=== PATIENT | male | born 1985 | race Caucasian/White ===

== ENCOUNTER 2016-05-30 23:50 | Emergency (ER) | payer MEDICAID | END 2016-05-31 01:46 | disposition home or self-care (01) | DX: R44.0 Auditory hallucinations (principal); F15.10 Other stimulant abuse, uncomplicated ==

== ENCOUNTER 2016-07-19 20:02 | Outpatient (CLI) | payer MEDICAID | END 2016-07-19 20:03 | disposition critical access hospital (66) | DX: S11.93XA Puncture wound without foreign body of unspecified part of neck, initial encounter (principal); X99.9XXA Assault by unspecified sharp object, initial encounter | CPT/HCPCS: A0425; A0429 ==

== ENCOUNTER 2016-07-19 20:18 | Inpatient (IN) | payer MEDICAID ==
[~2016-07-19 20:18] MED LIST: LACTATED RINGERS 1,000 ML IV ONE
[2016-07-19] MEDS ORDERED: SODIUM CHLORIDE 0.9% 1,000 ML IV ONE (20:23)
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
[2016-07-19 20:34] LABS: BASOPHILS # (AUTO) 0.1 10^3/uL (0.0-0.1); BASOPHILS % (AUTO) 0.4 %; HCT - HEMATOCRIT 44.4 % (42.0-52.0); HGB - HEMOGLOBIN 14.4 g/dL (14.0-18.0); LYMPHOCYTES # (AUTO) 0.9 10^3/uL (1.5-3.5); LYMPHOCYTES % (AUTO) 5.9 %; MEAN CORPUSCULAR HEMOGLOBIN 29.1 pg (27.0-31.0); MEAN CORPUSCULAR HGB CONC 32.5 g/dL (32.0-36.0); MEAN CORPUSCULAR VOLUME 89.6 fL (80.0-94.0); MEAN PLATELET VOLUME 8.7 fL (7.4-11.4); MONOCYTES # (AUTO) 1.1 10^3/uL (0.0-1.0); MONOCYTES % (AUTO) 7.3 %; NEUTROPHILS # (AUTO) 13.3 10^3/uL (1.5-6.6); NEUTROPHILS % (AUTO) 86.4 %; RED BLOOD COUNT 4.96 10^6/uL (4.70-6.10); RED CELL DISTRIBUTION WIDTH 12.7 % (12.0-15.0); UNCORRECTED WHITE BLOOD COUNT 15.5 x10^3/uL; WHITE BLOOD COUNT 15.5 x10^3/uL (4.8-10.8)
[2016-07-19] MEDS ORDERED: TETANUS/DIPHTHERIA/PERTUSSIS 0.5 ML SYRINGE IM ONE (20:35)
[2016-07-19 20:42] LABS: INR 1.1 (0.8-1.2); PT - PROTHROMBIN TIME 12.3 secs (9.9-12.6)
[2016-07-19 20:46] LABS: ALBUMIN/GLOBULIN RATIO 1.5 (1.0-2.2); BILIRUBIN,TOTAL 0.8 mg/dL (0.2-1.0); BUN - BLOOD UREA NITROGEN 13 mg/dL (6-20); CALCIUM 9.3 mg/dL (8.5-10.3); CARBON DIOXIDE - CO2 26 mmol/L (21-32); CHLORIDE 98 mmol/L (101-111); CREATININE 0.8 mg/dL (0.6-1.2); GFR - MDRD 114 (>89); GLUCOSE 125 mg/dL (70-100); LIPASE 13 U/L (22-51); POTASSIUM 3.8 mmol/L (3.5-5.0); SALICYLATE < 6.0 mg/dL; SODIUM 136 mmol/L (135-145); TOTAL PROTEIN 7.9 g/dL (6.7-8.2)
[2016-07-19 20:49] LABS: PARTIAL THROMBOPLASTIN TIME 26.4 secs (24.9-33.3)
[2016-07-19 20:50] LABS: ACETAMINOPHEN < 10 ug/mL (10-30)
--- NOTE | 2016-07-19 21:09 | XRAY Preliminary Report ---
Exam: XR Chest 1 View IMPRESSION: Small left pneumothorax with about 3 cm of apical pleural separation. RAD[facility] The critical result notification system was initiated by Dr. Tim El at 21:04 hrs on 07/19/16. The above critical findings were discussed with Dr. Conner by Dr. Tim El at 21:07 hrs on 07/19/16. SITE ID: [id number]
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
[2016-07-19] MEDS ORDERED: IOPAMIDOL-300 100 ML VIAL IVP ONE (21:26)
--- NOTE | 2016-07-19 22:23 | CT Preliminary Report ---
Exam: CT Chest Angio (PE) IMPRESSION: 1. Skin wound over the left anterior fourth costochondral junction with soft tissue air in the upper left chest and neck. 2. No sign of active extravasation, spasm, or other evidence of vascular injury. 3. Small left hemopneumothorax, with no sign of the pulmonary injury identified. RADI SITE ID: [id number]
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
--- NOTE | 2016-07-19 22:37 | CT Preliminary Report ---
Exam: CT Neck Angio IMPRESSION: Somewhat limited due to predominantly venous phase acquisition. However, there are no fin dings of significant vascular injury to the left carotid or subclavian arteries. Limited evaluation o f the vertebral arteries. Left apical pneumothorax, described on prior chest radiograph. [facility]IA SITE ID: [id number]
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
[2016-07-19] MEDS ORDERED: LACTATED RINGERS 1,000 ML IV ONE (22:47)
[2016-07-19] MEDS ORDERED: LIDOCAINE 1% 50 ML MDV SUBQ ONE (22:47)
[2016-07-19] MEDS ORDERED: LORazepam 2 MG/ML SYRINGE IVP PRN (23:35)
[2016-07-19] MEDS ORDERED: PROCHLORPERAZINE 10 MG/2 ML VIAL IVP PRN (23:35)
[2016-07-19] MEDS ORDERED: SODIUM CHLORIDE FLUSH 0.9% 10 ML SYRINGE IVP PRN (23:35)
[2016-07-19] MEDS ORDERED: ONDANSETRON 4 MG/2 ML VIAL IVP PRN (23:35)
[2016-07-19] MEDS ORDERED: LIDOCAINE 1%-EPI 1:100000 20 ML MDV SUBQ ONE (23:35)
--- NOTE | 2016-07-19 23:45 | XRAY Preliminary Report ---
Exam: XR Chest for Line Placement IMPRESSION: 1. Endotracheal tube 5.6 cm above the jocelyne. 2. Left chest tube, buckled at the sidehole. 3. Suspect small residual left apical pneumothorax measuring about 1.3 cm. [facility] SITE ID: [id number]
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
[2016-07-19] MEDS ORDERED: NEOSTIGMINE 1 MG/1 ML 10 ML MDV IVP ONE (23:51)
[2016-07-19] MEDS ORDERED: PROPOFOL 200 MG/20 ML VIAL IVP ONE (23:51)
[2016-07-19] MEDS ORDERED: GLYCOPYRROLATE 1 MG/5 ML VIAL IVP ONE (23:51)
[2016-07-19] MEDS ORDERED: DEXAMETHASONE 4 MG/ML VIAL IVP ONE (23:51)
[2016-07-19] MEDS ORDERED: LIDOCAINE-MPF 2% 5 ML VIAL IM ONE (23:51)
[2016-07-19] MEDS ORDERED: PHENYLEPHRINE 50 MG/5 ML VIAL IV ONE (23:51)
[2016-07-19] MEDS ORDERED: ceFAZolin 1 GM VIAL IV ONE (23:51)
[2016-07-19] MEDS ORDERED: SUCCINYLCHOLINE 200 MG/10 ML VIAL IVP ONE (23:51)
[2016-07-19] MEDS ORDERED: ONDANSETRON 4 MG/2 ML VIAL IVP ONE (23:51)
[2016-07-19] MEDS ORDERED: HYDROmorphone 1 MG/ML SYRINGE IVP ONE (23:51)
[2016-07-19] MEDS ORDERED: ROCURONIUM 50 MG/5 ML VIAL IVP ONE (23:51)
[2016-07-19] MEDS ORDERED: MIDAZOLAM 2 MG/2 ML VIAL IVP ONE (23:51)
[2016-07-20] MEDS ORDERED: MEPERIDINE 50 MG/ML SYRINGE ONE (00:04)
[2016-07-20] MEDS: D5NS W/20 MEQ KCL 1,000 ML IV SCH ×3 (00:26→20:24)
[2016-07-20] MEDS: ACETAMINOPHEN 1,000 MG/100 ML 100 ML IV SCH ×4 (00:29→18:19)
--- NOTE | 2016-07-20 00:38 | XRAY Preliminary Report ---
Exam: XR Chest 1 View IMPRESSION: 1. Left chest tube in place with probable small residual 5 mm left apical pneumothorax. [facility] SITE ID: [id number]
--- NOTE | 2016-07-20 00:41 | XRAY Report ---
EXAM: CHEST RADIOGRAPHY EXAM DATE: 07/19/2016 11:48 PM. CLINICAL HISTORY: CHEST TUBE INSERTION, POST SURGERY. COMPARISON: 07/19/2016, 2218 hrs.. TECHNIQUE: 1 view. FINDINGS: Lungs/Pleura: Suspected small residual left apical pneumothorax measuring 5 mm. No alveolar consolida tion or pleural effusion seen. Mediastinum: Within exam limitations, cardiomediastinal contour is normal. Other: Left chest tube in place. Endotracheal tube is no longer seen. IMPRESSION: 1. Left chest tube in place with probable small residual 5 mm left apical pneumothorax. [facility] Referring Provider Line: [phone] SITE ID: [id number]
[2016-07-20] MEDS: ceFAZolin 2 GM/50 ML 50 ML IV SCH ×2 (00:57→06:32)
[2016-07-20 01:11] LABS: BILIRUBIN,URINE NEGATIVE (NEGATIVE); PH,URINE 5.5 PH (5.0-7.5)
[2016-07-20 01:12] LABS: UA CHARGE (STRIP ONLY) YES
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
[2016-07-20 04:59] LABS: BASOPHILS % (AUTO) 0.2 %; HCT - HEMATOCRIT 31.6 % (42.0-52.0); HGB - HEMOGLOBIN 10.8 g/dL (14.0-18.0); LYMPHOCYTES # (AUTO) 0.5 10^3/uL (1.5-3.5); LYMPHOCYTES % (AUTO) 4.8 %; MEAN CORPUSCULAR HEMOGLOBIN 30.2 pg (27.0-31.0); MEAN CORPUSCULAR HGB CONC 34.1 g/dL (32.0-36.0); MEAN CORPUSCULAR VOLUME 88.7 fL (80.0-94.0); MEAN PLATELET VOLUME 8.5 fL (7.4-11.4); MONOCYTES # (AUTO) 0.4 10^3/uL (0.0-1.0); MONOCYTES % (AUTO) 4.3 %; NEUTROPHILS # (AUTO) 9.5 10^3/uL (1.5-6.6); NEUTROPHILS % (AUTO) 90.7 %; RED BLOOD COUNT 3.56 10^6/uL (4.70-6.10); RED CELL DISTRIBUTION WIDTH 12.3 % (12.0-15.0); UNCORRECTED WHITE BLOOD COUNT 10.5 x10^3/uL; WHITE BLOOD COUNT 10.5 x10^3/uL (4.8-10.8)
[2016-07-20 05:15] LABS: ALBUMIN/GLOBULIN RATIO 1.5 (1.0-2.2); BILIRUBIN,TOTAL 0.5 mg/dL (0.2-1.0); CALCIUM 7.8 mg/dL (8.5-10.3); CREATININE 0.7 mg/dL (0.6-1.2); POTASSIUM 4.4 mmol/L (3.5-5.0); TOTAL PROTEIN 5.4 g/dL (6.7-8.2)
[2016-07-20] MEDS: SODIUM CHLORIDE FLUSH 0.9% 10 ML SYRINGE IVP SCH ×3 (06:06→20:52)
[2016-07-20] MEDS: PANTOPRAZOLE 40 MG TABLET PO SCH (06:34)
[2016-07-20] MEDS: HYDROmorphone 1 MG/ML SYRINGE IVP PRN ×2 (08:22→13:48)
[2016-07-20] MEDS ORDERED: HALOPERIDOL 1 MG TABLET PO PRN (17:19)
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
[2016-07-20] MEDS ORDERED: SODIUM CHLORIDE FLUSH 0.9% 10 ML SYRINGE IVP PRN (17:42)
[2016-07-20] MEDS ORDERED: HYDROmorphone 1 MG/ML SYRINGE IVP PRN (17:46)
[2016-07-20] MEDS ORDERED: SODIUM CHLORIDE FLUSH 0.9% 10 ML SYRINGE IVP SCH (22:00)
[2016-07-21] MEDS: ACETAMINOPHEN 1,000 MG/100 ML 100 ML IV SCH ×5 (00:46→23:56)
[2016-07-21] MEDS ORDERED: ACETAMINOPHEN 1,000 MG/100 ML 100 ML IV ONE (05:48)
[2016-07-21] MEDS: SODIUM CHLORIDE FLUSH 0.9% 10 ML SYRINGE IVP SCH ×3 (05:59→20:35)
[2016-07-21] MEDS: PANTOPRAZOLE 40 MG TABLET PO SCH (06:00)
[2016-07-21] MEDS: HYDROcod/ACETAM 10 MG/325 MG TABLET PO PRN ×2 (06:50→20:31)
[2016-07-21] MEDS: D5NS W/20 MEQ KCL 1,000 ML IV SCH ×2 (06:50→19:39)
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
--- NOTE | 2016-07-21 08:11 | XRAY Preliminary Report ---
Exam: XR Chest 1 View IMPRESSION: 1. Stable chest 2. Minimal left upper lobe opacity 3. Left-sided chest tube without any significant pneumothorax [facility] SITE ID: [id number]
--- NOTE | 2016-07-21 08:14 | XRAY Report ---
EXAM: CHEST RADIOGRAPHY EXAM DATE: 07/21/2016 07:44 AM. CLINICAL HISTORY: Follow pneumo - patient on water seal. COMPARISON: Chest radiograph 07/20/2016. TECHNIQUE: 1 view. FINDINGS: Lungs/Pleura: Small amount of left upper lobe heterogeneous opacity. No effusions. No significant pne umothorax. Mediastinum: Stable Other: Left-sided chest tube, unchanged. Left chest wall soft tissue emphysema. IMPRESSION: 1. Stable chest 2. Minimal left upper lobe opacity 3. Left-sided chest tube without any significant pneumothorax [facility] Referring Provider Line: [phone] SITE ID: [id number]
[2016-07-21] MEDS: LORazepam 0.5 MG TABLET PO PRN ×2 (08:50→19:39)
[2016-07-21] MEDS: POLYETHYLENE GLYCOL 3350 17 GM PACKET PO SCH (09:10)
--- NOTE | 2016-07-21 13:40 | XRAY Report ---
FRONTAL CHEST: 07/21/2016 CLINICAL INDICATION: Chest tube removal. COMPARISON: 07/21/2016. FINDINGS: Frontal view of the chest demonstrates a normal cardiac silhouette. The left chest tube walter s been removed. There is a residual 1.4 cm left apical pneumothorax present. The right lung is clear. IMPRESSION: RESIDUAL 1.4 CM LEFT APICAL PNEUMOTHORAX FOLLOWING CHEST TUBE REMOVAL. JOB #: [id number] EXT JOB #:[id number]
--- NOTE | 2016-07-21 14:02 | XRAY Report ---
FRONTAL CHEST: 07/20/2016 CLINICAL INDICATION: Pneumothorax. COMPARISON: 07/19/2016. FINDINGS: Frontal view of the chest demonstrates a normal cardiac silhouette. A left chest tube and residual left apical pneumothorax are stable. The right lung is clear. IMPRESSION: STABLE LEFT CHEST TUBE AND RESIDUAL LEFT PNEUMOTHORAX. JOB #: [id number] EXT JOB #:
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
[2016-07-21] MEDS: NICOTINE 7 MG PATCH TOP SCH (20:35)
[2016-07-22] MEDS: ACETAMINOPHEN 1,000 MG/100 ML 100 ML IV SCH (05:51)
[2016-07-22] MEDS: SODIUM CHLORIDE FLUSH 0.9% 10 ML SYRINGE IVP SCH ×3 (05:53→22:28)
[2016-07-22] MEDS: D5NS W/20 MEQ KCL 1,000 ML IV SCH (06:57)
[2016-07-22] MEDS: PANTOPRAZOLE 40 MG TABLET PO SCH (06:57)
[2016-07-22] MEDS: POLYETHYLENE GLYCOL 3350 17 GM PACKET PO SCH (07:33)
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
--- NOTE | 2016-07-22 08:57 | XRAY Report ---
FRONTAL CHEST: 07/22/2016 CLINICAL INDICATION: Followup pneumothorax. COMPARISON: 07/21/2016 FINDINGS: Frontal view of the chest demonstrates a normal cardiac silhouette. Left apical pneumotho rax has decreased, now measuring 10 mm. No new consolidation or effusion is present. No right pneum othorax. IMPRESSION: DECREASING LEFT APICAL PNEUMOTHORAX, NOW MEASURING 10 MM. JOB #: [id number] EXT JOB #:[id number]
[2016-07-22] MEDS ORDERED: NICOTINE 7 MG PATCH TOP SCH (09:00)
[2016-07-22] MEDS: LORazepam 0.5 MG TABLET PO PRN ×2 (10:01→21:50)
--- NOTE | 2016-07-22 14:00 | Discharge Plan ---
Discharge Plan Disposition: 01 Home, Self Care Condition: Stable Diet: Regular Activity Restrictions: No Restrictions Shower Restrictions: No Driving Restrictions: No Weight Bearing: Full Weight Additional Instructions or Follow Up instructions: Avoid flying for 2 weeks. Return to ED if develop shortness of breath, Chest pain, or fevers. No Smoking: If you smoke, Please STOP! Call for help. Follow-up with: Michael Conner MD [Provider Admit Priv/Credential] - 1 Week (Call afterdischarge to schedule an appointment for next week)
--- NOTE | 2016-07-22 14:59 | PROCEDURE REPORT ---
Hospitalist Procedure Note - Procedure Note Procedure Note: Sutures removed in neck and chest and derma mcdaniel applied without incident.
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
[2016-07-22] MEDS: NICOTINE 7 MG PATCH TOP SCH ×2 (19:02→20:14)
[2016-07-23] MEDS: HYDROcod/ACETAM 10 MG/325 MG TABLET PO PRN (00:38)
[2016-07-23] MEDS: PANTOPRAZOLE 40 MG TABLET PO SCH (06:49)
[2016-07-23] MEDS: SODIUM CHLORIDE FLUSH 0.9% 10 ML SYRINGE IVP SCH ×2 (06:49→07:25)
[2016-07-23 07:58] VITALS: BP 117/62
[2016-07-23] MEDS: POLYETHYLENE GLYCOL 3350 17 GM PACKET PO SCH (08:07)
--- NOTE | 2016-07-23 08:58 | Discharge Plan ---
Discharge Plan Disposition: [facility] Psych Hosp/Unit DC/Xfer Condition: Stable Diet: Regular Activity Restrictions: No Restrictions Shower Restrictions: No Driving Restrictions: No Weight Bearing: Full Weight Additional Instructions or Follow Up instructions: Avoid flying for 2 weeks. Return to ED if develop shortness of breath, Chest pain, or fevers. No Smoking: If you smoke, Please STOP! Call for help. Follow-up with: Michael Conner MD [Provider Admit Priv/Credential] - 1 Week (Call afterdischarge to schedule an appointment for next week)
[2016-07-23] MEDS ORDERED: DOCUSATE SODIUM 250 MG CAPSULE PO SCH (09:00)
[2016-07-23] MEDS ORDERED: SENNA 8.6 MG TABLET PO SCH (09:00)
[2016-07-23] MEDS ORDERED: POLYETHYLENE GLYCOL 3350 17 GM PACKET PO SCH (09:00)
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
== END 2016-07-23 12:30 | DRG 987 ==
LOC: EDUNIT# → ED 20:18 → SDS 20:40 → ICU 20:40 → UNDOADMIN 23:35 → ICU 23:35 → MS 07-20 19:49 → ICU 07-20 19:49 → UNDODISIN 07-23 12:30
PROVIDERS: ADMIT Surgery; ATTEND Surgery
PROC: 0W9B30Z Drainage of Left Pleural Cavity with Drainage Device, Percutaneous Approach (ICD-10-PCS; principal; 2016-07-19 21:00)
PROC: 0JQ43ZZ Repair Right Neck Subcutaneous Tissue and Fascia, Percutaneous Approach (ICD-10-PCS; 2016-07-19 21:00)
DX: S27.2XXA Traumatic hemopneumothorax, initial encounter (principal); S21.312A Laceration without foreign body of left front wall of thorax with penetration into thoracic cavity, initial encounter; F15.180 Other stimulant abuse with stimulant-induced anxiety disorder; S11.91XA Laceration without foreign body of unspecified part of neck, initial encounter; X78.1XXA Intentional self-harm by knife, initial encounter; F32.9 Major depressive disorder, single episode, unspecified; Y93.9 Activity, unspecified; Y92.009 Unspecified place in unspecified non-institutional (private) residence as the place of occurrence of the external cause; Z87.898 Personal history of other specified conditions
CPT/HCPCS: 36415; 70498; 71010; 71275; 80053; 80306; 80307; 80320; 80329; 81001; 81003; 83605; 83690; 85025; 85610; 85730; 86850; 86900; 86901; 86920; 87640; 93005; 93010; 96360; 99284; 99285

== ENCOUNTER 2016-11-09 20:31 | Outpatient (CLI) | payer MEDICAID | END 2016-11-09 20:32 | disposition EMS.NT | LOC: EMS 20:31 | PROVIDERS: ATTEND Surgery | DX: Z03.89 Encounter for observation for other suspected diseases and conditions ruled out (principal) ==

== ENCOUNTER 2017-01-11 16:42 | Outpatient (CLI) | payer MEDICAID | END 2017-01-11 16:43 | disposition EMS.NT | LOC: EMS 16:42 | PROVIDERS: ATTEND Surgery | DX: R00.2 Palpitations (principal) ==

== ENCOUNTER 2017-04-28 13:25 | Outpatient (CLI) | payer MEDICAID | END 2017-04-28 13:26 | disposition EMS.NT | LOC: EMS 13:25 | PROVIDERS: ATTEND Surgery | DX: Z03.89 Encounter for observation for other suspected diseases and conditions ruled out (principal) ==

== ENCOUNTER 2017-09-30 14:28 | Outpatient (CLI) | payer MEDICAID ==
[2017-09-30 15:08] LABS: ALBUMIN 4.3 g/dL (3.2-5.5); ALBUMIN/GLOBULIN RATIO 1.4 (1.0-2.2); BILIRUBIN,TOTAL 0.3 mg/dL (0.2-1.0); CALCIUM 8.9 mg/dL (8.5-10.3); CREATININE 0.8 mg/dL (0.6-1.2); TOTAL PROTEIN 7.4 g/dL (6.7-8.2)
[2017-09-30 15:16] LABS: BASOPHILS % (AUTO) 0.7 %; EOSINOPHILS # (AUTO) 0.2 10^3/uL (0.0-0.7); EOSINOPHILS % (AUTO) 2.9 %; HGB - HEMOGLOBIN 14.4 g/dL (14.0-18.0); LYMPHOCYTES # (AUTO) 1.6 10^3/uL (1.5-3.5); LYMPHOCYTES % (AUTO) 29.8 %; MEAN CORPUSCULAR HGB CONC 33.7 g/dL (32.0-36.0); MEAN CORPUSCULAR VOLUME 91.9 fL (80.0-94.0); MEAN PLATELET VOLUME 8.6 fL (7.4-11.4); MONOCYTES # (AUTO) 0.5 10^3/uL (0.0-1.0); MONOCYTES % (AUTO) 9.1 %; NEUTROPHILS # (AUTO) 3.1 10^3/uL (1.5-6.6); NEUTROPHILS % (AUTO) 57.5 %; PLT - PLATELET COUNT 253 10^3/uL (130-450); RED BLOOD COUNT 4.64 10^6/uL (4.70-6.10); RED CELL DISTRIBUTION WIDTH 12.3 % (12.0-15.0); WHITE BLOOD COUNT 5.3 x10^3/uL (4.8-10.8)
== END 2017-09-30 14:29 | disposition home or self-care (01) ==
LOC: LAB 14:28
PROVIDERS: ATTEND Registered Nurse
DX: F31.73 Bipolar disorder, in partial remission, most recent episode manic (principal)
CPT/HCPCS: 36415; 80053; 85025